=== PATIENT | female | born 1955 | race Caucasian/White ===

== ENCOUNTER 2017-03-06 21:30 | Emergency (ER) | payer OTHER ==
[~2017-03-06] VITALS: Ht 154.9 cm; Wt 61.2 kg
[2017-03-06] MEDS ORDERED: ATROPINE SULFATE 1 MG/10 ML DISP.SYRIN IV ONE ×2 (21:33)
[2017-03-06] MEDS ORDERED: CALCIUM CHLORIDE 1 GM/10 ML DISP.SYRIN IV ONE (21:33)
[2017-03-06] MEDS ORDERED: ETOMIDATE 20 MG/10 ML VIAL MC ONE (21:33)
[2017-03-06] MEDS ORDERED: LIDOCAINE 2% 100 MG/5 ML SYRINGE MC ONE (21:33)
[2017-03-06] MEDS ORDERED: EPINEPHRINE 1:10,000 1 MG/10 ML DISP.SYRIN MC ONE ×2 (21:33)
[2017-03-06] MEDS ORDERED: SODIUM BICARBONATE 8.4% 50 MEQ/50 ML DISP.SYRIN IV ONE ×2 (21:33)
[2017-03-06] MEDS ORDERED: EPINEPHRINE 1:10,000 1 MG/10 ML DISP.SYRIN ONE (22:09)
[2017-03-06] MEDS ORDERED: LEVO500T90 PO (22:14)
[2017-03-06] MEDS ORDERED: OMEP40CA37 PO (22:14)
[2017-03-06] MEDS ORDERED: FLUC200T8 PO (22:14)
[2017-03-06] MEDS ORDERED: LENA10CA PO (22:14)
[2017-03-06] MEDS ORDERED: ACYC400T PO (22:14)
[2017-03-06] MEDS ORDERED: TRAM50TA2 PO (22:14)
[2017-03-06] MEDS ORDERED: NOREPINEPHRINE BITARTRATE 4 MG/4 ML VIAL IV ONE (22:22)
[2017-03-06] MEDS: NOREPINEPHRINE BITARTRATE 8 MG in IV DEXTROSE 5% 500 ML IV ONE (22:23)
--- NOTE | 2017-03-06 22:26 | NUR ---
Okay to use 4mg/ml Norepinephrine for ordered drip per ER MD. ER MD at bedside during administration. Stopped due to patient change in condition during code blue.
[2017-03-06] MEDS ORDERED: ATROPINE SULFATE 1 MG/10 ML DISP.SYRIN ONE ×2 (22:33→22:42)
[2017-03-06] MEDS ORDERED: CALCIUM CHLORIDE 1 GM/10 ML DISP.SYRIN IVP ONE ×2 (22:35→22:42)
--- NOTE | 2017-03-06 23:23 | NUR ---
Pharmacy Note: Per Karyn Manzanares, supervisor [facility], code blue form is sufficient for MD orders for medication given during the code. [facility].
--- NOTE | 2017-03-06 23:29 | NUR ---
ER MD Wallis on phone with patients oncologist Dr Lockett
--- NOTE | 2017-03-06 23:31 | NUR ---
Code blue initiated 2126, complete 2239. Patient pronounced by Dr Wallis @ 2239. Family at bedside with patient. All belongings with family, to be taken home by them.
--- NOTE | 2017-03-06 23:38 | NUR ---
Per MD to MD conversation, Dr Wallis states Dr Lockett will sign certificate for the patient.
--- NOTE | 2017-03-06 23:39 | NUR ---
Family has their own mortuary company preferred for use. Company name : [employer], , company insurance account representative - [phone]
--- NOTE | 2017-03-06 23:40 | NUR ---
[facility] contacted by Amy Manzanares.
--- NOTE | 2017-03-06 23:50 | NUR ---
[facility] agent name : [employer], confirmation
--- NOTE | 2017-03-07 01:22 | NUR ---
Patients body awaiting moss picker by mortuary, release forms completed by . Karyn AGUILARtank builder supervisor aware, no further action needed. Awaiting mortuary arrival
--- NOTE | 2017-03-07 01:36 | NUR ---
Patient picked up by [employer] transportation @ 0134 ,post mortem care complete, all medical equipment and lines removed. All patient belongings taken home by family.
[2017-03-07 01:43] VITALS: BP 0/0
== END 2017-03-07 01:47 | disposition expired ==
LOC: ER 21:32
DX: I46.9 Cardiac arrest, cause unspecified (principal); C90.00 Multiple myeloma not having achieved remission
CPT/HCPCS: 92950; A4663; C1751; J0171; J0461; J2001; J3490